=== PATIENT | male | born 1955 | race Caucasian/White ===

== ENCOUNTER → 2016-05-30 | Outpatient (CLI) | payer BC ==
--- NOTE | 2016-06-02 09:11 | DI ---
History bony abnormality observed prior study. Procedure: 4 view examination of the pelvis. Prior examination: 06/01/15 Findings: There is good bilateral acetabular coverage; slight narrowing on the right side compared wi th left. Marginal lateral osteophytes noted bilaterally. Pelvic ring is intact. Overlying the right sacral wing is a zone of bone density, identified on prior study and unchanged. I t is round and measures approximately 2.3 x 2.1 cm currently, unchanged from prior study. The bowel g as pattern is unremarkable. No occult fracture is identified. Impression: 1. Large bony osteophyte or osteoma overlying the right sacral ala. It is benign and unchanged from l ast years examination. 2. Mild degenerative changes both hips.
== END ==
LOC: RAD 15:41
PROVIDERS: ATTEND Family Medicine
DX: M89.8X6 Other specified disorders of bone, lower leg (principal); M16.0 Bilateral primary osteoarthritis of hip
CPT/HCPCS: 72190

== ENCOUNTER → 2016-06-04 | Outpatient (CLI) | payer BC ==
--- NOTE | 2016-06-04 16:59 | DI ---
History: Bronchitis symptoms. 2 view examination. Prior study 08/23/14 Findings: No cardiac enlargement. Bony structures intact. Very slight pulmonary hyperexpansion. Impression: Very slight pulmonary hyperexpansion. No acute or focal pulmonary process observed elsewh ere.
== END ==
LOC: RAD 16:17
PROVIDERS: ATTEND Family Medicine
DX: J40 Bronchitis, not specified as acute or chronic (principal)
CPT/HCPCS: 71020

== ENCOUNTER 2016-06-09 08:22 | Emergency (ER) | payer BC ==
[2016-06-09] MEDS ORDERED: ALBUTEROL SULFATE 5 MG/ML-20 ML BOTTLE NEB ONE (08:32)
[2016-06-09] MEDS ORDERED: Sodium Chloride 0.9% 1,000 ML PRIMARY IV ONE (08:32)
[2016-06-09] MEDS ORDERED: ONDANSETRON 4 MG/2 ML VIAL IVP ONE (08:32)
[2016-06-09] MEDS ORDERED: DEXAMETHASONE PF 10 MG/1 ML VIAL IV ONE (08:36)
--- NOTE | 2016-06-09 08:41 | PDOC ---
Dyspnea HPI - General Chief Complaint: Respiratory Complaint Stated Complaint: INCREASED COUGH/DYSPNEA/LOW O2 SATS Date Seen by Provider: 06/09/16 Time Seen by Provider: 08:37 Source: POSITIVE: Patient, EMS Exam Limitations: POSITIVE: No limitations Treatment Prior to Arrival: REPORTS: Other (duoneb treatment) Nurse's Notes Reviewed & Considered: Yes EMS Report Reviewed & Considered: Verbal - History of Present Illness Initial Comments: Patient comes in today with hypoxia. 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 Patient states on May 28 while at work he developed significant fatigue in performing his customary duties. He was seen by his primary care physician and started on a Z-Humble. He was seen a week ago today in follow-up, chest x-ray was read as clear, per the patient. He was started on levofloxacin on Thursday, because of earache and sore throat. Yesterday he began to develop increasing shortness of breath and difficulty breathing. He denies any fever or chills or sweats, nausea vomiting or diarrhea, hematuria or dysuria, no rashes. Body Location Affected: REPORTS: Chest Timing: REPORTS: Constant, Changing Over Time, Getting Worse Duration: <24 hours Severity: Severe Initiating Event: REPORTS: Upper Respiratory Illness Exacerbated By: REPORTS: Exertion, Coughing Similar Symptoms Previously: Yes Recently seen/treated/hospitalized: Yes Any Prior Injuries Related to Current Complaint?: No - Patient Home Medications Home Medications: Home Medications Aspirin [Aspir 81] 81 mg ORAL QD tab 11/17/11 Cinnamon Bark [Cinnamon] 1,000 mg PO BID 11/17/11 Acyclovir [Zovirax Tab] 1 tab PO BID #10 tab 08/31/15 Atenolol 50 mg ORAL QD #30 tab 08/31/15 Metformin HCl 500 mg ORAL BID #90 tab 08/31/15 Levofloxacin [Levaquin] 500 mg PO DAILY 5 Days 06/06/16 - Patient Allergies Allergies/Adverse Reactions: Allergies Allergy/AdvReac Type Severity Reaction Status Date / Time Penicillins Allergy Intermediate rash Verified 06/09/16 08:45 Past Medical History - heen HEENT History: Denies History Cardiovascular History: Hypertension, Arrhythmia, DVTs Respiratory History: Denies History Gastrointestinal History: Denies History Genitourinary History: Denies History Endocrine History: Type 2 Diabetes (oral) Musculoskeletal History: Denies History Neurological History: Denies History Blood Disorders: Denies History Psychiatric History: Denies History History of Sexually Transmitted Diseases: No Cancer History: Denies History History of MDRO: No History of Other Communicable Diseases: Yes (ME[employer]LES [employer] [place]) Alcohol Use: None Substance Use Type: None Previous Surgical History: Yes Type / Date of Surgery: LEFT INGUINAL HERNIA X 2/ RIGHT INGUINAL HERNIA/ RIGHT KNEE SCOPE/ SHOULDER SCOPE/ FACIAL RECONST X 4 Anesthesia Reactions: No Malignant Hyperthermia: No Significant Family History: Heart disease, COPD, Diabetes, Hypertension ROS - Limitations ROS Limitations: No Limitations Constitution: REPORTS: Denies Symptoms Cardiovascular: REPORTS: Heart Racing Respiratory: REPORTS: Cough Non Productive, Shortness Of Breath Neurological: REPORTS: Denies Neuro Symptoms Gastrointestinal: REPORTS: Denies GI Symptoms Endocrine: REPORTS: Denies Symptoms Musculoskeletal: REPORTS: Denies MS Symptoms Genitourinary: REPORTS: Denies Symptoms Eyes: REPORTS: Denies Symptoms ENT: REPORTS: Denies Symptoms Skin: REPORTS: Denies Skin Symptoms Lympathic: REPORTS: Denies Lympathic Symptoms Immunologic: POSITIVE: Denies Symptoms Psychiatric: POSITIVE: Anxiety Dyspnea Physical Exam - General Appearance General Appearance: REPORTS: Alert, Cooperative, No Evidence of Trauma, Anxious - HEENT HEENT: POSITIVE: Head Inspection Nml, Eyes Inspection Nml, Ears Inspection Nml, Nose Inspection Nml, PERRL, EOMI - Neck Neck: REPORTS: Normal Inspection - Respiratory Respiratory: REPORTS: Respiratory Distress, Wheezes, Prolonged Expirations, Accessory Muscle Use, Decreased Air Movement, Speaks Broken Sentences - Cardiovascular Cardiovascular: REPORTS: Heart Sounds Normal, Tachycardia - Abdomen Abdomen: Soft: (All Quadrants), Normal Bowel Sounds: (All Quadrants), Denies Tenderness: (All Quadrants) - Skin Skin: REPORTS: Intact, Normal For Race, Warm, Dry, No Rash - Extremities Extremity: Non-Tender: (All Extremities), Normal ROM: (All Extremities), Normal Inspection: (All Extremities) - Neurological / Psychological Neurological: POSITIVE: Affect Apporpriate, Oriented X3 Dyspnea Progress - Results Reviewed by me Lab Results Reviewed: Yes Lab Results:: Laboratory Results 06/09/16 Range/Units 08:50 WBC 14.49 H (4.8-10.8) 10^3/uL RBC 5.42 (4.70-6.10) 10^6/uL Hgb 15.8 (14.0-18.0) g/dL Hct 44.3 (42.0-52.0) % MCV 81.7 (80-90) FL MCH 29.2 (27-31) PG MCHC 35.7 (33-37) g/dL RDW Std Deviation 39.7 (39-50) fL RDW Coeff of Ayush 13.4 (11.5-14.5) % Plt Count 262 (140-350) 10*3/uL MPV 10.4 (7.4-12.2) FL Immature Gran % (Auto) 0.3 (0-5) % Neut % (Auto) 78.4 (50-80) % Lymph % (Auto) 14.1 (10-50) % [place] % (Auto) 6.5 (5-15) % Eos % (Auto) 0.4 (0-8) % Baso % (Auto) 0.3 (0-1) % Immature Gran # (Auto) 0.04 10*3/UL Neut # (Auto) 11.37 10*3/UL Lymph # (Auto) 2.04 10*3/uL [place] # (Auto) 0.94 H (0.3-0.8) 10*3/UL Eos # (Auto) 0.06 10*3/UL Baso # (Auto) 0.04 10*3/UL WBC Morphology Comment Normal morphology (NORM) Plt Morphology Comment Normal morphology (NORM) RBC Morph Comment Normal morphology (NORM) VBG pH 7.28 L (7.32-7.42) VBG pCO2 41 L (45-55) mmHg VBG HCO3 19 L (22-26) mmol/L VBG Base Excess -8 L (-2-2) MMOL/L - Patient's Progress Pain Medication Addressed: POSITIVE: Not Applicable MDM / ED Course: Patient was brought in via EMS with an IV in place and was sent to the lab for studies, and radiographic studies were obtained. Patient was started on a 10 mg continuous albuterol neb, 15 L nonrebreather, and 10 mg of dexamethasone. Blood cultures were also obtained. While awaiting laboratory findings and radiographic studies the end of my shift has occurred after over care to Dr. Terence Mooney Air Movement: POSITIVE: Poor Patient Care Time - Estimated PCT Patient Care Time (In Minutes): 20 Vital Signs - Recent Vital Signs Vital Signs: Vital Signs (Last 8 hours) Temp Pulse Resp BP Pulse Ox 06/09/16 08:22 98.4 F 130 H 24 119/89 80 - VS Reviewed Vital Signs Reviewed: Yes (hypoxic, 90% on 15 liters) Discharge Clinical Impression: Pneumonia Discharge Disposition: Other (Patient care was transferred to Dr. Terence Mooney at 09:00)
[2016-06-09] MEDS ORDERED: SODIUM CL 0.9% FOR INH 3 ML NEB NEB ONE (08:45)
[2016-06-09 08:56] LABS: BASOPHILS # (AUTO) 0.04 10*3/UL; BASOPHILS % (AUTO) 0.3 % (0-1); EOSINOPHILS % (AUTO) 0.4 % (0-8); HEMATOCRIT 44.3 % (42.0-52.0); HEMOGLOBIN 15.8 g/dL (14.0-18.0); IMM GRAN % (AUTO) 0.3 % (0-5); IMM GRAN# (AUTO) 0.04 10*3/UL; LYMPHOCYTES # (AUTO) 2.04 10*3/uL; LYMPHOCYTES % (AUTO) 14.1 % (10-50); MEAN CORPUSCULAR HEMOGLOBIN 29.2 PG (27-31); MEAN CORPUSCULAR HGB CONC 35.7 g/dL (33-37); MEAN PLATELET VOLUME 10.4 FL (7.4-12.2); MONOCYTES # (AUTO) 0.94 10*3/UL (0.3-0.8); MONOCYTES % (AUTO) 6.5 % (5-15); NEUTROPHILS # (AUTO) 11.37 10*3/UL; NEUTROPHILS % (AUTO) 78.4 % (50-80); RDW COEFFICIENT OF VARIATION 13.4 % (11.5-14.5); RED BLOOD COUNT 5.42 10^6/uL (4.70-6.10); WHITE BLOOD COUNT 14.49 10^3/uL (4.8-10.8)
[2016-06-09 08:58] VITALS: RESP 24; TEMP 98.4
[2016-06-09 09:01] LABS: ASPARTATE AMINO TRANSFERASE 46 IU/L (21-57); BILIRUBIN,TOTAL 1.1 mg/dL (0.3-1.2); BLOOD UREA NITROGEN 20 mg/dL (7-22); BUN/CREATININE RATIO 22.22 (6-20); CHLORIDE 103 meq/L (98-112); CREATININE 0.9 mg/dL (0.70-1.50); EST GLOMERULAR FILTRATION > 60 (>60 ml/min/1.73m(2)); GLUCOSE 342 mg/dL (78-110); POTASSIUM 4.1 meq/L (3.8-5.2); SODIUM 137 meq/L (135-145); TOTAL PROTEIN 7.3 g/dL (6.1-8.0)
[2016-06-09 09:02] LABS: PLATELET MORPHOLOGY COMMENT NORMAL MORPHOLOGY (NORM)
[2016-06-09 09:10] LABS: LACTATE 4.7 MMOL/L (0.70-2.10)
[2016-06-09] MEDS ORDERED: ENOXAPARIN SODIUM 100 MG/1 ML SYRINGE SUBCUT ONE (10:57)
[2016-06-09] MEDS ORDERED: ENOXAPARIN SODIUM 100 MG/1 ML SYRINGE SUBCUT SCH (11:00)
[2016-06-09] MEDS ORDERED: Piperacillin/Tazobactam Inj 3.375 GM in Sodium Chloride 0.9% 100 ML IV ONE (11:04)
--- NOTE | 2016-06-09 11:23 | DI ---
CT ANGIOGRAM OF THE CHEST, 06/09/2016 9:29 AM : Clinical History: Hypoxia. History of deep vein thrombosis. Previous Exam: None at this facility. Scans are performed from the base of the neck to the lower lung bases following IV administration of 70 mL of Isovue 300. Proprietary automated bolus tracking software was used to verify the timing of t he injection. The base of the neck and thoracic inlet are normal except for enlargement of the thyroid gland especi ally in the left lobe and isthmus suggesting a goiter. There are no abnormal axillary, supraclavicula r, mediastinal, or hilar nodes. The heart is normal in size but there is dilatation of the right atri um and right ventricle. There is contrast flowing retrograde into the inferior vena cava and hepatic veins suggesting tricuspid insufficiency. There are infiltrates involving the right upper lobe and a small portion of the lateral segment of the right middle lobe. These are contiguous with the major an d minor fissures and barely are contiguous with the parietal pleura. There is no pleural effusion. Ex tensive clots are present bilaterally involving all lobes. There is a classic appearing "saddle" embo ojse involving the left pulmonary artery extending between the upper and lower lobe branches. There is no pleural effusion. Both adrenal glands and the spleen as well as the visualized portions of the li rob and pancreas are normal. READIN. Extensive pulmonary emboli are present bilaterally with pulmonary arterial hypertension and dilat ation of the right ventricle and right atrium suggesting acute cor pulmonale. There may be associated tricuspid insufficiency. 2. There are infiltrates in the right upper lobe and right middle lobe and these may represent pulmo nary infarcts although they are not classic for that process. Concurrent pneumonia cannot be excluded . 3. Thyromegaly suggesting a goiter.
--- NOTE | 2016-06-09 11:50 | PDOC ---
Transfer of Care - Care Accepted Time Care Transferred: 09:00 Report from Transferring Physician Received: Yes (Dr. Salinas) MDM / ED Course: The patient is a 60-year-old male who had presented to the emergency department with increased shortness of breath and hypoxia. He was initially evaluated per Dr. Salinas and initial workup was started per Dr. Salinas. He states that he developed upper respiratory symptoms approximately 12 days ago with primarily cough. He was seen as an outpatient and treated with Zithromax initially. He did not have significant improvement in a developed associated ear pain and sore throat. He was reevaluated and had a chest x-ray last week which apparently was read as normal. His symptoms however continued to worsen and he had been seen again as an outpatient last week and was started on Levaquin which he has been taking for the last 3 days. Over the last 24-48 hours or shortness of breath has significantly worsened. He states that he has been sleeping in a chair the last couple of nights and has not slept well. He presented to the clinic and had to be wheeled in by wheelchair. His oxygen saturations were in the low 70s and his pulse was in the 130s. He was subsequent transferred here to the emergency room for evaluation. Dr. Salinas had ordered blood cultures as well as lactate, d-dimer and venous blood gas. His venous blood gas does reveal a pH of 7.28. His white count is elevated at 14,000. Other lab work was pending at the time care was transferred. He had been given an albuterol neb treatment which was ongoing at the time of my initial evaluation. The patient denies any current chest pain. He states that he is significantly short of breath especially with any attempts at walking or moving. He has not had any syncopal episodes. He does have a distant history of DVT in his right leg 15 years ago following a knee injury. He is not currently taking any blood thinner medications. He states that he has chronic edema in his right leg secondary to these previous clot. Home Medications: Home Medications Aspirin [Aspir 81] 81 mg ORAL QD tab 11/17/11 Cinnamon Bark [Cinnamon] 1,000 mg PO BID 11/17/11 Acyclovir [Zovirax Tab] 1 tab PO BID #10 tab 08/31/15 Atenolol 50 mg ORAL QD #30 tab 08/31/15 Metformin HCl 500 mg ORAL BID #90 tab 08/31/15 Levofloxacin [Levaquin] 500 mg PO DAILY 5 Days 06/06/16 Allergies/Adverse Reactions: Allergies Penicillins Allergy (Intermediate, Verified 06/09/16 08:45) rash Vital Signs Reviewed: Yes Nurse's Notes Reviewed & Considered: Yes - Pending Patient Care Items Pending Patient Care Items: POSITIVE: Labs, X-ray Results - Re-Evaluation of Patient Disposition of Patient: POSITIVE: Transferred Counseled: POSITIVE: Patient, Family, RE: Lab Results, RE: Radiology Results, RE : DX Clinical Impression Documented: Yes - Results Reviewed Lab Results Reviewed by Me: Yes Lab Results: Laboratory Results 06/09/16 Range/Units 08:50 WBC 14.49 H (4.8-10.8) 10^3/uL RBC 5.42 (4.70-6.10) 10^6/uL Hgb 15.8 (14.0-18.0) g/dL Hct 44.3 (42.0-52.0) % MCV 81.7 (80-90) FL MCH 29.2 (27-31) PG MCHC 35.7 (33-37) g/dL RDW Std Deviation 39.7 (39-50) fL RDW Coeff of Ayush 13.4 (11.5-14.5) % Plt Count 262 (140-350) 10*3/uL MPV 10.4 (7.4-12.2) FL Immature Gran % (Auto) 0.3 (0-5) % Neut % (Auto) 78.4 (50-80) % Lymph % (Auto) 14.1 (10-50) % [place] % (Auto) 6.5 (5-15) % Eos % (Auto) 0.4 (0-8) % Baso % (Auto) 0.3 (0-1) % Immature Gran # (Auto) 0.04 10*3/UL Neut # (Auto) 11.37 10*3/UL Lymph # (Auto) 2.04 10*3/uL [place] # (Auto) 0.94 H (0.3-0.8) 10*3/UL Eos # (Auto) 0.06 10*3/UL Baso # (Auto) 0.04 10*3/UL WBC Morphology Comment Normal morphology (NORM) Plt Morphology Comment Normal morphology (NORM) RBC Morph Comment Normal morphology (NORM) D-Dimer 9.21 H (0.00-0.59) mg/L VBG pH 7.28 L (7.32-7.42) VBG pCO2 41 L (45-55) mmHg VBG HCO3 19 L (22-26) mmol/L VBG Base Excess -8 L (-2-2) MMOL/L Sodium 137 (135-145) meq/L Potassium 4.1 (3.8-5.2) meq/L Chloride 103 (98-112) meq/L Carbon Dioxide 18 L (23-33) meq/L Anion Gap 16 (5-20) BUN 20 (7-22) mg/dL Creatinine 0.9 (0.70-1.50) mg/dL Estimated GFR > 60 (>60 ml/min/1.73m(2)) BUN/Creatinine Ratio 22.22 H (6-20) Glucose 342 H (78-110) mg/dL Calculated Osmolality 300.0 H (267-292) mOsm/kg Lactic Acid 4.7 H (0.70-2.10) MMOL/L Calcium 10.0 (8.7-10.7) mg/dL Total Bilirubin 1.1 (0.3-1.2) mg/dL AST 46 (21-57) IU/L ALT 97 H (21-72) IU/L Alkaline Phosphatase 124 (38-126) IU/L Total Protein 7.3 (6.1-8.0) g/dL Albumin 4.3 (3.5-4.8) g/dL Globulin 3.0 (2.50-4.10) g/dL Albumin/Globulin Ratio 1.40 (1.3-2.0) mg/g - Consult Recommendations:: The remainder of the patient's blood work revealed a d-dimer that was significantly elevated at 9.5. The patient had not yet gone over for chest x- ray and this was subsequently canceled and he was sent over for a CTA PE protocol instead. This was performed and reveals bilateral PEs the left one being a saddle embolus between the upper and lower lobe. He also has infiltrate in the right upper lobe more consistent with pneumonia rather than infarction per radiologist. He does have evidence of dilated pulmonary artery concerning for acute cor pulmonale per radiologist. The patient's oxygen saturations have been maintained at 90-93% on oxygen per high flow mask. His oxygen saturations however do drop with any movement or if he takes his oxygen off even briefly. I did attempt to push radiology films to [facility] however there is issues with the connection this morning. I did discuss the patient with Dr. Singleton who is the sas administrator on duty. I did review current presentation and CT findings with her. She recommended that he undergo echocardiogram to evaluate for right heart strain to see if he would be a candidate for thrombolytics. I did discuss this with our radiologist here Dr. Dhaliwal and he stated that we did not have the capability of performing the echocardiogram today. I did discuss the patient again with Dr. Singleton and she agreed to accept the patient in transfer. The patient had been given Lovenox 90 mg subcutaneous prior to results of CT findings. Because of the infiltrate noted on CT he was also treated for pneumonia with Zosyn in combination with the Levaquin that he was already taking. These findings and recommendations were discussed with the patient and his family. Arrangements are being made to transfer the patient by ambulance. Patient Care Time - Estimated PCT Patient Care Time (In Minutes): 50 Vital Signs - Recent Vital Signs Vital Signs: Vital Signs (Last 8 hours) Temp Pulse Resp BP Pulse Ox 06/09/16 08:22 98.4 F 130 H 24 119/89 80 - VS Reviewed Vital Signs Reviewed: Yes Discharge Clinical Impression: Pneumonia, Pulmonary embolism, Diabetes mellitus with hyperglycemia Discharge Disposition: Transferred to Tertiary Care Facility Condition: Serious Follow Up With: MANOLO DUNCAN [Primary Care Provider] - Date Decision to Transfer to Another Facility: 06/09/16 Time Decision to Transfer to Another Facility: 11:30
== END 2016-06-09 12:00 | disposition short-term general hospital (02) ==
LOC: ER 08:22
DX: I26.99 Other pulmonary embolism without acute cor pulmonale (principal); J18.9 Pneumonia, unspecified organism; R09.02 Hypoxemia; E11.65 Type 2 diabetes mellitus with hyperglycemia; Z86.718 Personal history of other venous thrombosis and embolism; Z79.01 Long term (current) use of anticoagulants
CPT/HCPCS: 36415 ×2; 71275; 80053; 82803; 83605; 85025; 85379; 87804; 94640; 96365; 96375; 99284 ×2; J2543; 87040; J1100; J1650; J2405; J7030; J7050

== ENCOUNTER → 2016-09-23 | Outpatient (CLI) | payer BC ==
[2016-09-23 08:15] LABS: BASOPHILS # (AUTO) 0.08 10*3/UL; BASOPHILS % (AUTO) 1.4 % (0-1); EOSINOPHILS # (AUTO) 0.16 10*3/UL; EOSINOPHILS % (AUTO) 2.9 % (0-8); HEMATOCRIT 42.1 % (42.0-52.0); HEMOGLOBIN 14.7 g/dL (14.0-18.0); LYMPHOCYTES # (AUTO) 1.83 10*3/uL; MEAN CORPUSCULAR HGB CONC 34.9 g/dL (33-37); MEAN PLATELET VOLUME 9.3 FL (7.4-12.2); MONOCYTES # (AUTO) 0.53 10*3/UL (0.3-0.8); MONOCYTES % (AUTO) 9.5 % (5-15); NEUTROPHILS # (AUTO) 2.94 10*3/UL; RED BLOOD COUNT 5.07 10^6/uL (4.70-6.10)
[2016-09-23 08:21] LABS: PLATELET MORPHOLOGY COMMENT NORMAL MORPHOLOGY (NORM); RBC MORPHOLOGY COMMENT NORMAL MORPHOLOGY (NORM); WBC MORPHOLOGY COMMENT NORMAL MORPHOLOGY (NORM)
[2016-09-23 08:27] LABS: BLOOD UREA NITROGEN 12 mg/dL (7-22); BUN/CREATININE RATIO 17.14 (6-20); CALCIUM 9.7 mg/dL (8.7-10.7); EST GLOMERULAR FILTRATION > 60 (>60 ml/min/1.73m(2)); SERUM ALBUMIN 3.9 g/dL (3.5-4.8)
[2016-09-23 09:12] LABS: CHOL/HDL RATIO 5.41 RATIO (0-4.0); LDL CHOLESTEROL,CALCULATED 106.8 mg/dL; URIC ACID 4.8 mg/dl (3.8-8.5)
== END ==
LOC: LAB 08:01
PROVIDERS: ATTEND Family Medicine
DX: E11.9 Type 2 diabetes mellitus without complications (principal); I10 Essential (primary) hypertension; I49.8 Other specified cardiac arrhythmias; E29.1 Testicular hypofunction; Z86.711 Personal history of pulmonary embolism; Z12.5 Encounter for screening for malignant neoplasm of prostate
CPT/HCPCS: 36415; 80053; 80061; 82306; 82607; 83036; 84403; 84443; 84550; 85025; G0103

== ENCOUNTER → 2016-10-28 | Outpatient (CLI) | payer BC | LOC: LAB 14:12 | PROVIDERS: ATTEND Internal Medicine | DX: Z86.711 Personal history of pulmonary embolism (principal) | CPT/HCPCS: 36415; 85300; 85379; 85384; 85610; 85730 ==